=== PATIENT | female | born 1940 | race Caucasian/White ===

== ENCOUNTER 2022-06-06 09:33 | Emergency (ER) | payer MEDICARE, SELFPAY ==
[2022-06-06] VITALS (18 sets, daily range): BP systolic 124–175; BP diastolic 72–127; PULSE 52–68; RESP 10–20; TEMP 36.7–37.4; O2SAT 89–96
--- NOTE | 2022-06-06 09:44 | XR_ITS ---
WS: [id number] CHEST XRAY TECHNIQUE: Portable chest. CLINICAL INFORMATION: dyspnea/cough COMPARISON: None. FINDINGS: Shallow inspiration. Heart: Cardiomegaly. Tortuous thoracic aorta. Lungs: Elevation RIGHT hemidiaphragm. Moderate chronic emphysematous changes. No focal pneumonia or p leural fluid. Bones: Osteopenia XR/XR chest 1V portable [id number] IMPRESSION: 1. Cardiomegaly. No acute pulmonary infiltrates. 2. Shallow inspiration with elevation hemidiaphragm.
--- NOTE | 2022-06-06 09:45 | W.ED.AMS ---
HPI - Altered Mental Status General: Chief Complaint: Altered Mental Status Stated Complaint: altered mental status Time Seen by Provider: 06/06/22 09:34 Source: patient Mode of arrival: EMS History of Present Illness: 82-year-old female who presents emergency room with complaint of altered mental status. Patient is awake alert and oriented has a low-grade fever but otherwise her vital signs are normal she is not sure why she is here she cannot recall particularly where she is at she cannot tell me she lives in [place]. She thought she was at that their clinic. She denies any chest pain shortness of breath no abdominal pain no dysuria urgency or frequency. Course Vital Signs: Vital signs: Vital Signs Temperature 98.0 F 06/06/22 09:37 Pulse Rate 59 L 06/06/22 12:00 Respiratory Rate 10 L 06/06/22 12:00 Blood Pressure 171/127 06/06/22 12:00 Pulse Oximetry 94 06/06/22 12:00 Oxygen Delivery Me thod 06/06/22 09:37 MDM - Altered Mental Status Lab Data 06/06/22 10:00 06/06/22 10:00 Radiology Impressions Chest X-Ray 06/06/22 09:44 IMPRESSION: 1. Cardiomegaly. No acute pulmonary infiltrates. 2. Shallow inspiration with elevation hemidiaphragm. Laboratory Results WBC 4.8 10^3/uL (4.0-10.0) 06/06/22 10:00 RBC 5.11 10^6/uL (4.1-5.3) 06/06/22 10:00 Hgb 14.8 g/dL (11.5-15.3) 06/06/22 10:00 Hct 46.2 % (37.0-47.0) 06/06/22 10:00 MCV 90.4 fl (81-99) 06/06/22 10:00 MCH 29.0 pg (28.0-34.0) 06/06/22 10:00 MCHC 32.0 g/dL (30.0-36.0) 06/06/22 10:00 RDW 13.1 % (12.1-15.1) 06/06/22 10:00 Plt Count 194 10^3/cmm (130-400) 06/06/22 10:00 MPV 10.6 fL (7.4-10.4) H 06/06/22 10:00 Neut % (Auto) 48.4 % 06/06/22 10:00 Lymph % (Auto) 38.2 % 06/06/22 10:00 [place] % (Auto) 9.1 % 06/06/22 10:00 Eos % (Auto) 2.9 % 06/06/22 10:00 Baso % (Auto) 1.2 % 06/06/22 10:00 Neut # (Auto) 2.34 10^3/uL (1.8-7.7) 06/06/22 10:00 Lymph # (Auto) 1.9 10^3/uL (0.8-4.8) 06/06/22 10:00 [place] # (Auto) 0.4 10^3/uL (0.2-0.9) 06/06/22 10:00 Eos # (Auto) 0.1 10^3/uL (0.0-0.8) 06/06/22 10:00 Baso # (Auto) 0.1 10^3/uL (0.0-0.1) 06/06/22 10:00 Nucleated RBC % (auto) 0 % 06/06/22 10:00 Nucleated RBCs # 0.0 /100WBC 06/06/22 10:00 Sodium 145 mmol/L (136-145) 06/06/22 10:00 Potassium 3.8 mmol/L (3.5-5.1) 06/06/22 10:00 Chloride 108 mmol/L (98-107) H 06/06/22 10:00 Carbon Dioxide 27 mmol/L (22-29) 06/06/22 10:00 Anion Gap 13.8 (5-19) 06/06/22 10:00 BUN 12 mg/dL (8-23) 06/06/22 10:00 Creatinine 1.0 mg/dL (0.5-0.9) H 06/06/22 10:00 GFR Calculation Not Reportable 06/06/22 10:00 Glucose 103 mg/dL (65-115) 06/06/22 10:00 POC Glucose 104 mg/dL (70-110) 06/06/22 09:48 Calculated Osmolality 300 mOsm/kg (285-295) H 06/06/22 10:00 Calcium 8.7 mg/dL (8.5-10.5) 06/06/22 10:00 Total Bilirubin 0.3 mg/dL (0.15-1.2) 06/06/22 10:00 AST 28 U/L (0-32) 06/06/22 10:00 ALT 37 U/L (0-33) H 06/06/22 10:00 Alkaline Phosphatase 79 U/L (35-105) 06/06/22 10:00 Total Protein 6.0 g/dL (6.6-8.7) L 06/06/22 10:00 Albumin 3.9 g/dL (3.5-5.2) 06/06/22 10:00 Globulin 2.1 g/dL (1.3-4.6) 06/06/22 10:00 Urine Color Yellow (Yellow) 06/06/22 10:49 Urine Appearance Clear (CLEAR) 06/06/22 10:49 Urine pH 5 (5-7) 06/06/22 10:49 Ur Specific [place] 1.020 (1.005-1.030) 06/06/22 10:49 Urine Protein Neg (Negative) 06/06/22 10:49 Urine Glucose (UA) Norm (Normal) 06/06/22 10:49 Urine Ketones Negative (Negative) 06/06/22 10:49 Urine Blood Neg (Negative) 06/06/22 10:49 Urine Nitrate Negative (Negative) 06/06/22 10:49 Urine Bilirubin Neg (Negative) 06/06/22 10:49 Urine Urobilinogen Neg mg/dL (Negative) 06/06/22 10:49 Ur Leukocyte Esterase Trace (Negative) H 06/06/22 10:49 Urine RBC 0-4 /hpf (0-2) H 06/06/22 10:49 Urine WBC 10-15 /hpf (0-5) H 06/06/22 10:49 Ur Squamous Epith Cells 0-4 /hpf (0-5) H 06/06/22 10:49 Amorphous Sediment Not Reportable 06/06/22 10:49 Urine Bacteria Trace /hpf (NONE) 06/06/22 10:49 Discharge Plan Discharge Condition: Stable Prescriptions: No Action quetiapine 25 mg tablet 25 mg PO BEDTIME donepezil 10 mg tablet 10 mg PO DAILY risperidone 0.5 mg tablet 0.5 mg PO DAILY bupropion HCl 200 mg tablet sustained-release 12 hr 200 mg PO DAILY quetiapine 50 mg tablet 50 mg PO BEDTIME Referrals: Juan Jimenez MD [Primary Care Provider] - Coding Level of Care Code ED [employer] for Junior Collado
--- NOTE | 2022-06-06 09:54 | ECG_ITS ---
[facility] Test Date: 2022-06-06 Pat Name: Nicolle Qiu Department: Room: Gender: Female Informatica: : 1940 Requested By: Jake Mane Order Number: [id number] Elizabeth MD: Elizabet Sheehan M.D. Measurements Intervals [place] Rate: 60 P: 72 AL: 156 QRS: -5 QRSD: 90 T: 109 QT: 412 QTc: 415 Interpretive Statements SINUS RHYTHM WITH MARKED SINUS ARRHYTHMIA SEPTAL MYOCARDIAL INFARCTION , PROBABLY OLD [40+ ms Q WAVE IN V1/V2] Diffuse nonspecific T wave changes No previous ECG available for comparison Electronically Signed On 06-07-2022 0:06:16 SENIOR ASSISTANT MANAGER by Elizabet Sheehan M.D. [id number]
[2022-06-06 10:03] LABS: Glucose Point of Care 104 mg/dL (70-110)
[2022-06-06 10:08] LABS: Basophils # 0.1 10^3/uL (0.0-0.1); Basophils % 1.2 %; Eosinophils # 0.1 10^3/uL (0.0-0.8); Eosinophils % 2.9 %; Hematocrit 46.2 % (37.0-47.0); Hemoglobin 14.8 g/dL (11.5-15.3); Lymphocytes # 1.9 10^3/uL (0.8-4.8); Lymphocytes % 38.2 %; Mean Corpuscular Volume 90.4 fl (81-99); Mean Platelet Volume 10.6 fL (7.4-10.4); Monocytes # 0.4 10^3/uL (0.2-0.9); Monocytes % 9.1 %; Neutrophils # 2.34 10^3/uL (1.8-7.7); Neutrophils % 48.4 %; Nucleated Red Blood Cells % 0 %; Platelet Count 194 10^3/cmm (130-400); Red Blood Count 5.11 10^6/uL (4.1-5.3); Red Cell Distribution Width 13.1 % (12.1-15.1); White Blood Count 4.8 10^3/uL (4.0-10.0)
[2022-06-06 10:28] LABS: Alanine Aminotransferase 37 U/L (0-33); Albumin Level 3.9 g/dL (3.5-5.2); Alkaline Phosphatase 79 U/L (35-105); Anion Gap 13.8 (5-19); Aspartate Amino Transferase 28 U/L (0-32); Blood Urea Nitrogen 12 mg/dL (8-23); Calcium 8.7 mg/dL (8.5-10.5); Carbon Dioxide 27 mmol/L (22-29); Chloride 108 mmol/L (98-107); Globulin 2.1 g/dL (1.3-4.6); Glucose 103 mg/dL (65-115); Osmolality Calculated 300 mOsm/kg (285-295); Potassium 3.8 mmol/L (3.5-5.1); Sodium 145 mmol/L (136-145); Total Bilirubin 0.3 mg/dL (0.15-1.2)
--- NOTE | 2022-06-06 10:59 | PC.NURSE ---
AT THIS TIME PATIENT IS NO LONGER ORIENTED TO SELF. PT STATED WHO AM I? WHERE AM I RIGHT NOW?
[2022-06-06 11:05] LABS: Add Urine Microscopic? YES; Bilirubin Urine Neg (Negative); Blood Urine Neg (Negative); Glucose Urine UA Norm (Normal); Ketones Urine Negative (Negative); Leukocyte Esterase Urine Trace (Negative); Nitrate Urine Negative (Negative); Protein Urine Neg (Negative); Urine Appearance Clear (CLEAR); Urine Color Yellow (Yellow); Urobilinogen Urine Neg (Negative); pH Urine 5 (5-7)
[2022-06-06 11:48] LABS: Add Urine Culture? No; Bacteria Urine TRACE /hpf; RBC Urine 0-4 /hpf (0-2); Squamous Epithelial Cell Urine 0-4 /hpf (0-5)
--- NOTE | 2022-06-06 12:34 | CT_ITS ---
WS: [id number] CT HEAD TECHNIQUE: Noncontrast CT of the head obtained from the skullbase to the vertex. CLINICAL INFORMATION: AMS COMPARISON: MRI 2011 DLP: 1122.[address] scans at [facility] use at least one of these dose optimization techniques: automated e xposure control; mA and/or kV adjustment per patient size (includes targeted exams where dose is matc hed to clinical indication); or iterative reconstruction. FINDINGS: No evidence of intracranial hemorrhage or mass effect. Ventricular system and basal cisterns are rios nt. Moderate to advanced small vessel changes with moderate parenchymal volume loss worse in the fron amber lobes and temporal lobes. No extra-axial fluid collections. No evidence of mass or mass effect. V ascular calcification. Mild mucosal thickening in the ethmoid air cells. CT/CT head wo con* [id number] IMPRESSION: 1. No evidence of intracranial hemorrhage or mass effect. 2. Moderate to advanced small vessel changes with moderate parenchymal volume loss more prominent in the frontal and temporal lobes bilaterally. 3. Vascular calcification. 4. Small vessel changes and volume loss progressed since 2011 5. No acute intracranial findings.
[2022-06-06] MEDS: amlodipine 5 mg Tablet PO (14:38)
[2022-06-06] MEDS: hyDRALAzine 20 mg/mL INJ 1 mL 10 MG IVP (14:40)
--- NOTE | 2022-06-20 05:58 | W.ED.GENADLT ---
HPI - General Adult General: Chief complaint: Altered Mental Status Stated complaint: altered mental status Time Seen by Provider: 06/06/22 09:34 Source: patient and family Mode of arrival: EMS History of Present Illness: 82-year-old female who presents emergency room with complaint of altered mental status. Patient is awake alert and oriented has a low-grade fever but otherwise her vital signs are normal she is not sure why she is here she cannot recall particularly where she is at she cannot tell me she lives in [place]. She thought she was at that their clinic. She denies any chest pain shortness of breath no abdominal pain no dysuria urgency or frequency. Associated symptoms: Reports confusion; Deny chest pain, cough, diaphoresis, decreased appetite, dyspnea, fevers/chills, headache(s), malaise, nausea, rash, palpitations, seizures, short of breath, syncope, vomiting or weakness Treatments prior to arrival: none Review of Systems Const: Reports: fever(s); Denies: chills, fatigue, malaise or diaphoresis ENMT: Denies: throat pain, ear or mastoid pain, nasal discharge or nasal congestion Card: Denies: chest pain, palpitations or syncope Resp: Denies: dyspnea GI: Denies: abdominal pain, nausea or vomiting : Denies: flank pain, difficulty voiding, dysuria, urinary frequency or urinary urgency Skin/Breast: Denies: rash Neuro: Reports: confusion; Denies: headache(s) PFS ED PFSH: Medical History (Updated 06/20/22 @ 05:59 by Jake Kellogg DO) Dementia Hypertension Social History (Updated 06/20/22 @ 06:00 by Jake Kellogg DO) Smoking and tobacco status: never smoked Alcohol intake: never Physical Exam Const: COMMON NORMALS: no acute distress GENERAL APPEARANCE: cooperative and comfortable ORIENTATION/CONSCIOUSNESS: Yes awake HENMT: COMMON NORMALS: normocephalic, atraumatic and hearing grossly normal bilaterally HEAD & SCALP: normocephalic and atraumatic Resp: COMMON NORMALS: normal respiratory effort, No retractions, No use of accessory muscles and clear to auscultation bilaterally AUSCULTATION: clear to auscultation bilaterally Cardio: COMMON NORMALS: regular rate, regular rhythm and No murmurs present (Cardio) RATE: regular rate RHYTHM: regular rhythm GI: COMMON NORMALS: Soft to palpation and No hepatosplenomegaly present AUSCULTATION: Yes normoactive bowel sounds PALPATION: Yes Soft to palpation, No Tenderness to palpation present (GI), No Guarding due to palpation present (GI) and Yes No hepatosplenomegaly present : COMMON NORMALS: Yes no CVA tenderness BLADDER/KIDNEY EXAM: Yes no CVA tenderness Back/Pelvis: COMMON NORMALS: no CVA tenderness Extremity: COMMON NORMALS: normal to inspection, capillary refill normal, no clubbing, cyanosis or edema, no calf tenderness and no pedal edema Skin: COMMON NORMALS: no rashes or lesions noted GENERAL SKIN EXAM: no rashes or lesions noted Course Vital Signs: Vital signs: Vital Signs Temperature 98.0 F 06/06/22 09:37 Pulse Rate 67 06/06/22 13:08 Respiratory Rate 18 06/06/22 13:08 Blood Pressure 127/91 06/06/22 13:00 Pulse Oximetry 89 L 06/06/22 13:08 Oxygen Delivery Me thod 06/06/22 09:37 MDM - General Adult Medical Decision Making White count normal urine shows mild cystitis. Chest x-ray was normal. Temperature improved. Patient be discharged home on oral antibiotics her last oxygen saturation was listed in the chart is 89 and believe that was a missed read. Her oxygen saturations are otherwise normal and chest x-ray is normal and exam was normal she is not tachycardic nor tachypneic or complained of any shortness of breath during her hospital stay. Started on oral antibiotics for 7 days and recheck if not improving. Medical Records I reviewed the patient's medical records. Lab Data I reviewed the patient's lab results. 06/06/22 10:00 06/06/22 10:00 Radiology Impressions Chest X-Ray 06/06/22 09:44 IMPRESSION: 1. Cardiomegaly. No acute pulmonary infiltrates. 2. Shallow inspiration with elevation hemidiaphragm. Head CT 06/06/22 12:34 IMPRESSION: 1. No evidence of intracranial hemorrhage or mass effect. 2. Moderate to advanced small vessel changes with moderate parenchymal volume loss more prominent in the frontal and temporal lobes bilaterally. 3. Vascular calcification. 4. Small vessel changes and volume loss progressed since 2011 5. No acute intracranial findings. Laboratory Results WBC 4.8 10^3/uL (4.0-10.0) 06/06/22 10:00 RBC 5.11 10^6/uL (4.1-5.3) 06/06/22 10:00 Hgb 14.8 g/dL (11.5-15.3) 06/06/22 10:00 Hct 46.2 % (37.0-47.0) 06/06/22 10:00 MCV 90.4 fl (81-99) 06/06/22 10:00 MCH 29.0 pg (28.0-34.0) 06/06/22 10:00 MCHC 32.0 g/dL (30.0-36.0) 06/06/22 10:00 RDW 13.1 % (12.1-15.1) 06/06/22 10:00 Plt Count 194 10^3/cmm (130-400) 06/06/22 10:00 MPV 10.6 fL (7.4-10.4) H 06/06/22 10:00 Neut % (Auto) 48.4 % 06/06/22 10:00 Lymph % (Auto) 38.2 % 06/06/22 10:00 [place] % (Auto) 9.1 % 06/06/22 10:00 Eos % (Auto) 2.9 % 06/06/22 10:00 Baso % (Auto) 1.2 % 06/06/22 10:00 Neut # (Auto) 2.34 10^3/uL (1.8-7.7) 06/06/22 10:00 Lymph # (Auto) 1.9 10^3/uL (0.8-4.8) 06/06/22 10:00 [place] # (Auto) 0.4 10^3/uL (0.2-0.9) 06/06/22 10:00 Eos # (Auto) 0.1 10^3/uL (0.0-0.8) 06/06/22 10:00 Baso # (Auto) 0.1 10^3/uL (0.0-0.1) 06/06/22 10:00 Nucleated RBC % (auto) 0 % 06/06/22 10:00 Nucleated RBCs # 0.0 /100WBC 06/06/22 10:00 Sodium 145 mmol/L (136-145) 06/06/22 10:00 Potassium 3.8 mmol/L (3.5-5.1) 06/06/22 10:00 Chloride 108 mmol/L (98-107) H 06/06/22 10:00 Carbon Dioxide 27 mmol/L (22-29) 06/06/22 10:00 Anion Gap 13.8 (5-19) 06/06/22 10:00 BUN 12 mg/dL (8-23) 06/06/22 10:00 Creatinine 1.0 mg/dL (0.5-0.9) H 06/06/22 10:00 GFR Calculation Not Reportable 06/06/22 10:00 Glucose 103 mg/dL (65-115) 06/06/22 10:00 POC Glucose 104 mg/dL (70-110) 06/06/22 09:48 Calculated Osmolality 300 mOsm/kg (285-295) H 06/06/22 10:00 Calcium 8.7 mg/dL (8.5-10.5) 06/06/22 10:00 Total Bilirubin 0.3 mg/dL (0.15-1.2) 06/06/22 10:00 AST 28 U/L (0-32) 06/06/22 10:00 ALT 37 U/L (0-33) H 06/06/22 10:00 Alkaline Phosphatase 79 U/L (35-105) 06/06/22 10:00 Total Protein 6.0 g/dL (6.6-8.7) L 06/06/22 10:00 Albumin 3.9 g/dL (3.5-5.2) 06/06/22 10:00 Globulin 2.1 g/dL (1.3-4.6) 06/06/22 10:00 Urine Color Yellow (Yellow) 06/06/22 10:49 Urine Appearance Clear (CLEAR) 06/06/22 10:49 Urine pH 5 (5-7) 06/06/22 10:49 Ur Specific [place] 1.020 (1.005-1.030) 06/06/22 10:49 Urine Protein Neg (Negative) 06/06/22 10:49 Urine Glucose (UA) Norm (Normal) 06/06/22 10:49 Urine Ketones Negative (Negative) 06/06/22 10:49 Urine Blood Neg (Negative) 06/06/22 10:49 Urine Nitrate Negative (Negative) 06/06/22 10:49 Urine Bilirubin Neg (Negative) 06/06/22 10:49 Urine Urobilinogen Neg mg/dL (Negative) 06/06/22 10:49 Ur Leukocyte Esterase Trace (Negative) H 06/06/22 10:49 Urine RBC 0-4 /hpf (0-2) H 06/06/22 10:49 Urine WBC 10-15 /hpf (0-5) H 06/06/22 10:49 Ur Squamous Epith Cells 0-4 /hpf (0-5) H 06/06/22 10:49 Amorphous Sediment Not Reportable 06/06/22 10:49 Urine Bacteria Trace /hpf (NONE) 06/06/22 10:49 Discharge Plan Discharge Patient Disposition: Home Clinical Impression: Cystitis, Dementia, Bradycardia, Benign essential HTN Condition: Stable Prescriptions: New amlodipine 5 mg tablet 5 mg PO DAILY Qty: 30 0RF No Action quetiapine 25 mg tablet 25 mg PO BEDTIME donepezil 10 mg tablet 10 mg PO DAILY risperidone 0.5 mg tablet 0.5 mg PO DAILY bupropion HCl 200 mg tablet sustained-release 12 hr 200 mg PO DAILY quetiapine 50 mg tablet 50 mg PO BEDTIME Discharge Orders: Discharge ED (Routine); Ordered 06/06/22 Ordered By: Jake Kellogg Referrals: Juan Jimenez MD [Primary Care Provider] - Discharge Diet: Usual diet Discharge Activity: Resume usual activity Patient Instructions: Opioid Safety, Pain Management Activity Restrictions/Additional Instructions: Seen today with altered mental status which is likely worsened from dementia along with the cystitis. You are also noted to have a slow heart rate. You are started on oral antibiotics and antihypertensive. We will discharge home and set up an outpatient 48-hour Holter monitor follow-up with your primary care doctor. It was also noted that there was some mild desaturations when you were sleeping you likely have some sleep apnea and should follow-up with your doctor regarding this. Coding Level of Care Code ED Chief Operations Officer for Junior Collado
== END 2022-06-06 17:17 | disposition home or self-care (01) ==
PROVIDERS: Emergency Provider Family Medicine; PCP Family Medicine
DX: N30.90 Cystitis, unspecified without hematuria (principal); F03.90 Unspecified dementia, unspecified severity, without behavioral disturbance, psychotic disturbance, mood disturbance, and anxiety; R00.1 Bradycardia, unspecified; I10 Essential (primary) hypertension; I51.7 Cardiomegaly
CPT/HCPCS: 36416; 70450; 71045; 80053; 81001; 82962; 85025; 93005; 96374; 99285; J0360